=== PATIENT | male | born 1975 | race Caucasian/White ===

== ENCOUNTER 2017-12-11 03:37 | Emergency (ER) | payer OTHER ==
[~2017-12-11] VITALS: Ht 175.3 cm; Wt 69.9 kg
--- NOTE | 2017-12-11 03:45 | NUR ---
PT BIBRA C/C OF CHEST PAIN X 3 DAYS. AA/O X4. SKINS PINK, WARM, DRY. NEGATIVE N/V. POSITIVE RADIATION TO LEFT AND RIGHT ARM. PT APPEARS TO BE ANXIOUS. PT STATED THAT HE HAS NOT BE TAKING HIS PRESCRIBED ATIVAN FOR A FEW WEEKS. VSS. RESP EVEN AND UNLABORED. NO S/S OF ACUTE DISTRESS. PT PLACED ON FORMAL WAITER/WAITRESS AND PULSE OX. PT SAFTEY AND COMFORT IN PLACE. AWAITING MD FOR EVAL.
[2017-12-11] MEDS ORDERED: LORAZEPAM INJ 2 MG/ML VIAL IM ONE (04:00)
[2017-12-11] MEDS ORDERED: LORAZEPAM INJ 2 MG/ML VIAL ONE (04:00)
[2017-12-11 04:07] LABS: BASOPHILS % (AUTO) 0.3 % (0.0-2.0); HEMATOCRIT 39 % (39-51); HEMOGLOBIN 13.3 g/dL (13.5-17.5); LYMPHOCYTES % (AUTO) 11.7 % (20.0-44.0); MEAN CORPUSCULAR HGB CONC 34 g/dl (31.0-36.0); MEAN CORPUSCULAR VOLUME 93 fL (80-96); MONOCYTES # (AUTO) 1.2 /CMM (0.1-1.30); MONOCYTES % (AUTO) 14.2 % (2.0-12.0); NEUTROPHILS % (AUTO) 72.8 % (43.0-81.0); PLATELET COUNT (AUTO) 227 /CMM (150-450); RDW COEFFICIENT OF VARIATION 13.9 (11.5-15.0); RED BLOOD CELL COUNT(AUTO) 4.16 MIL/uL (4.5-6.0); WHITE BLOOD COUNT (AUTO) 8.2 K/uL (4.3-11.0)
--- NOTE | 2017-12-11 04:18 | NUR ---
PULLED OUT 1 VIAL/2MG ATIVAN, ACCIDENTALLY WASTED IN PYXIS 1.75 MG, WASTED 1.50 MG ATIVAN. GAVE 0.5 MG ATIVAN IM ORDERED PER DR. KAY, WASTED MEDICATION WITH ORIENTEE YONNY HEATH/ YONNY SULLIVAN .
--- NOTE | 2017-12-11 04:18 | NUR ---
PT MEDICATED WITH ATIVAN 0.5MG IM DELTOID ORDERED PER MD. WASTED AND VERIFIED 1.5 MG ATIVAN WITH YONNY JUAN AND YONNY HEATH.
[2017-12-11 04:26] LABS: CARBON DIOXIDE 27 mmol/L (21-32); CHLORIDE 103 mmol/L (98-107); GLUCOSE 101 mg/dL (74-106); INR 0.9 (0.87-1.13); POTASSIUM 4.1 mmol/L (3.5-5.1); SODIUM SERUM 139 mmol/L (136-145)
[2017-12-11 04:27] LABS: CALCIUM, SERUM 8.5 mg/dL (8.5-10.1); CREATININE 0.9 mg/dL (0.6-1.3); UREA NITROGEN, BLOOD 7 mg/dL (7-18)
[2017-12-11 04:36] LABS: TROPONIN I < 0.017 ng/mL (0.00-0.056)
--- NOTE | 2017-12-11 04:59 | NUR ---
Patient discharged to home in stable condition. Written and verbal after care instructions given. Patient verbalizes understanding of instruction. VSS UPON DC.
[2017-12-11 05:00] VITALS: BP 110/70
== END 2017-12-11 05:02 | disposition home or self-care (01) ==
LOC: ER 03:42
DX: R07.89 Other chest pain (principal); F41.9 Anxiety disorder, unspecified
CPT/HCPCS: 36415; 71045-TC; 80048-TC; 84484-TC; 85025-TC; 85730-TC; A4606; J2060; Z7610

== ENCOUNTER 2017-12-26 02:08 | Emergency (ER) | payer OTHER ==
[~2017-12-26] VITALS: Ht 165.1 cm; Wt 72.6 kg
[2017-12-26 02:13] VITALS: BP 131/84
[2017-12-26] MEDS ORDERED: oxyCODONE/APAP (5/325 MG) 1 UDTAB TABLET ONE (02:50)
[2017-12-26] MEDS ORDERED: ONDANSETRON 4 MG TAB.RAPDIS ONE (02:50)
[2017-12-26] MEDS ORDERED: ONDANSETRON 4 MG TAB.RAPDIS SL ONE (03:00)
[2017-12-26] MEDS ORDERED: oxyCODONE/APAP (5/325 MG) 1 UDTAB TABLET PO ONE (03:00)
== END 2017-12-26 04:41 | disposition home or self-care (01) ==
LOC: ER 02:11
DX: S22.42XD Multiple fractures of ribs, left side, subsequent encounter for fracture with routine healing (principal); S52.592D Other fractures of lower end of left radius, subsequent encounter for closed fracture with routine healing; I10 Essential (primary) hypertension; F41.9 Anxiety disorder, unspecified; X58.XXXD Exposure to other specified factors, subsequent encounter
CPT/HCPCS: 71045-TC; A4606; Q0162; Z7610